=== PATIENT | male | born 2000 | race Caucasian/White ===

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

== ENCOUNTER 2018-08-25 09:41 | Emergency (ER) | payer BC ==
[2018-08-25] MEDS ORDERED: Metoclopramide HCl 10 MG/2 ML VIAL ONE (10:02)
[2018-08-25] MEDS ORDERED: diphenhydrAMINE 50 MG/ML VIAL ONE (10:02)
[2018-08-25] MEDS ORDERED: Ketorolac Tromethamine 30 MG/ML VIAL ONE (10:02)
[2018-08-25] MEDS ORDERED: Magnesium 2 GM/50 ML BAG (IN WATER) ONE (10:31)
[2018-08-25] MEDS ORDERED: Lorazepam 2 MG/ML VIAL ONE (10:31)
[2018-08-25] MEDS ORDERED: methylPREDNISolone Sod Succ/PF 125 MG/2 ML VIAL ONE (10:31)
[2018-08-25 11:24] LABS: #Basophils 0.1 thou/uL (0.0-0.2); #Eosinphils 0.1 thou/uL (0.0-0.7); #Lymphocytes 2.6 thou/uL (1.20-3.40); #Monocytes 0.5 thou/uL (0.11-0.59); #Neutrophils 4.1 thou/uL (1.40-6.50); %Basophils 1.2 % (0.0-1.0); %Eosinophils 1.1 % (0.0-10.0); %Lymphocytes 35.3 % (28.0-48.0); %Monocytes 7.1 % (0.0-4.0); %Neutrophils 55.3 % (31.0-61.0); Mean Corpuscular HGB CONC 34.1 g/dL (32.0-36.0); Mean Corpuscular Hemoglobin 30.7 pg (25.0-35.0); Mean Platelet Volume 8.2 fL (7.4-10.4); Platelet Count 229 thou/uL (130-400); RBC Distribution Width 11.2 % (11.5-14.5); Red Blood Cell (RBC) Count 5.21 mill/uL (4.00-5.20); White Blood Cell (WBC) Count 7.4 thou/uL (4.8-10.8)
--- NOTE | 2018-08-25 11:32 | CT ---
CT angiogram of brain with and without contrast: DATE: 08/25/2018 11:04 AM HISTORY: Recurrent migraine headache COMPARISON: None. TECHNIQUE: Noncontrast brain CT performed. Iodinated IV contrast injected. 100 cc of Isovue-370 Bolus chasing technique scan performed through the head. Coronal and sagittal 3-D MIP reconstructions. FINDINGS: NONCONTRAST CT OF BRAIN: Hemorrhage: None [place]/Infarction: None. Midline Shift: None. Hydrocephalus: None. Skull and Extracranial Soft tissues: Normal. CTA OF THE BRAIN: Right ICA: Patent. Right MCA: Patent. Right TRICIA: Patent. ACOM: Patent. Left ICA: Patent. Left MCA: Patent. Left TRICIA: Patent. PCOMs: Patent. Vertebral arteries: Patent. Basilar Artery: Patent. rubber tester: Patent. Incidentals: None. IMPRESSION: No hemodynamically significant stenosis, occlusion or aneurysmal dilation.
[2018-08-25] MEDS ORDERED: ISOVUE-370 76%-LOCM 1 ML ONE (11:53)
[2018-08-25] MEDS ORDERED: Valproate Sodium 500 MG in Sodium Chloride 0.9% 100 ML IVPB SCH (12:00)
[2018-08-25] MEDS ORDERED: Morphine 4 MG/ML VIAL ONE (12:26)
[2018-08-25 12:39] LABS: Albumin 4.5 g/dL (3.5-5.0)
[2018-08-25 12:40] LABS: Chloride 105 mmol/L (98-107); Sodium 136 mmol/L (136-145)
[2018-08-25 12:41] LABS: Calcium 9.3 mg/dL (7.8-10.44); Glucose 100 mg/dL (70-105)
[2018-08-25 12:42] LABS: Globulin 2.3 g/dL (2.4-3.5); Protein, Total 6.8 g/dL (6.0-8.3)
[2018-08-25 12:43] LABS: Anion Gap 11 mmol/L (10-20); Bilirubin, Total 0.9 mg/dL (0.2-1.2); Carbon Dioxide 24 mmol/L (22-29)
[2018-08-25 12:44] LABS: Alkaline Phosphatase 65 U/L (Less than 750)
[2018-08-25 12:45] LABS: Calc. Creatinine Clearance 0 mL/min (70-130); Estimated GFR-MDRD Greater than 90
[2018-08-25 12:46] LABS: BUN (Urea Nitrogen) 10 mg/dL (8.4-21.0)
[2018-08-25 12:47] LABS: ALT (SGPT) 19 U/L (8-55); AST (SGOT) 15 U/L (10-45)
[2018-08-25 13:34] LABS: Bilirubin Negative (Negative); Blood, Urine Negative (Negative); Clarity Turbid (Clear); Glucose, Urine (Dipstick) Normal (Negative); Leukocyte Negative Leu/uL (Negative); Nitrite Negative (Negative); Protein, Urine (Dipstick) Negative (Neg-Trace); Urobilinogen Normal mg/dL (Less than 2)
== END 2018-08-25 14:57 | disposition home or self-care (01) ==
LOC: ERS 09:41
DX: R51 Headache (principal)
CPT/HCPCS: 70496; 80053; 81003; 85025; 96365; 96367; 96368; 96375; J1200; J1885; J2060; J2270; J2765; J2930; J3475; J3490; Q9966